=== PATIENT | male | born 1965 | race Two or more races ===

== ENCOUNTER 2025-08-16 08:03 | Day surgery (SDC) | payer OTHER, MEDICAID ==
[~2025-08-16] VITALS: Ht 177.8 cm; Wt 77.1 kg
[~2025-08-16 08:03] MED LIST: ALLO300T2 PO; CHLO25TA2 PO; DULO60CA41 PO; EMPA1TAB PO; FER325T PO; GABA-1250 PO; HYDR10SY18 PO; LORA-1121 PO; MAGN400T40 OR; MORP15TA PO; ONDA-155 PO; PANT40TA2 PO; PERCOT PO; POTA-215 PO; SACU1TAB PO; TRAZ-228 PO
[2025-08-16] MEDS ORDERED: PROPOFOL 10 MG/ML 20 ML IV ONE ×4 (10:11→10:58)
[2025-08-16] MEDS ORDERED: LIDOCAINE 2% (LOCAL ANESTH.) PF 5ml SDV ONE (10:11)
[2025-08-16 11:07] VITALS: PULSE 58; RESP 18; TEMP 98.1; O2SAT 96
--- NOTE | 2025-08-16 11:08 | DVHHP2 ---
GI H&P Pre-Op Assessment Date: 08/16/25 Chief complaint: Cirrhosis and positive fit test. HPI: per clinic note Past medical history: per clinic note Past surgical history: per clinic note Family history: per clinic note Physical exam: General: NAD, AAOX3 HEENT: PERRL, no scleral icterus, normal hearing, gums without lesions or bleeding, oropharynx clear without erythema or exudate. Neck: Supple without enlargement of the thyroid, or lymphadenopathy. Chest: Normal size and shape, no tenderness, lung oden clear to auscultation and percussion, nonlabored breathing. Heart: RRR, no murmur Abdomen: non-distended, no tenderness to palpation, +BS, no hepatosplenomegaly Extremities: no edema Neurological: CN II-XII intact, sensation intact in all extremities, 5+ strength in all extremities Skin: No rashes, No jaundice Assessment: - Cirrhosis and positive fit test. Plan: - EGD - Colonoscopy - Risks (bleeding, infection, perforation, reaction to sedation medications and cardiopulmonary arrest) and benefit of the procedure were explained to patient. Patient agrees to undergo the procedure. JOSE CHASE MD Aug 16, 2025 11:08
--- NOTE | 2025-08-16 11:10 | DVHOP2 ---
Operative Report DATE OF OPERATION: 08/16/25 PROCEDURE: Upper Endoscopy. PREOPERATIVE INDICATION: The patient is a 60 -year-old male with cirrhosis undergoing endoscopy for esophageal variceal screening. POSTOPERATIVE DIAGNOSES: 1. Portal hypertensive gastropathy. 2. 2 cm hiatal hernia 3. Two esophageal varices were banded in the distal esophagus. PROCEDURE PERFORMED BY: Chapito Busby SCOPE: Olympus videoendoscope. ASA CLASS: 3 PREOPERATIVE MEDICATIONS: MAC with Jun MARTINEZ PROCEDURE IN DETAIL: After obtaining an informed consent, the patient was placed on his back. The patient was then sedated by Jun MARTINEZ. A bite block was placed between his teeth. The endoscope was then passed through the oropharynx, into the esophagus, and through the stomach and pylorus up to the second and third part of the duodenum. The duodenum was normal in appearance. There was portal hypertensive gastropathy. There was a 2 cm hiatal hernia. The GE junction was at 39 cm. Two esophageal varices in the distal esophagus were banded. The endoscope was then withdrawn. The patient tolerated the procedure well without difficulty. COMPLICATIONS : None SPECIMENS: None DISPOSITION: D/C to home PLAN: 1. Patient will need repeat EGD to reassess the esophageal varices in about a month. CHAPITO BUSBY MD Aug 16, 2025 11:10
--- NOTE | 2025-08-16 11:12 | DVHOP2 ---
Operative Report DATE OF OPERATION: 08/16/25 PROCEDURE: Colonoscopy. PREOPERATIVE INDICATION: The patient is a 60 -year-old male undergoing colonoscopy for positive fit test. POSTOPERATIVE DIAGNOSES: 1. Few small diverticulosis in the left colon. 2. There were rectal varices. 3. Internal hemorrhoids. PROCEDURE PERFORMED BY: Chapito Busby M.D. SCOPE: Olympus videocolonoscope. ASA CLASS: 3 PREOPERATIVE MEDICATIONS: MAC with Jun MARTINEZ PROCEDURE IN DETAIL: After obtaining an informed consent, the patient was placed on left lateral decubitus position. He was then sedated by Jun MARTINEZ. A rectal examination was performed that was normal. The colonoscope was then passed through the anus into the rectosigmoid and through the descending, transverse, and ascending colon up to the cecum with visualization of the appendiceal orifice, base of the cecum and the ileocecal valve. No mass or polyp was observed. There were rectal varices. They were not bleeding. There were internal hemorrhoids. The colonoscope was then withdrawn. The patient tolerated the procedure well without difficulty. WITHDRAWAL TIME: 7 minutes QUALITY OF THE PREP: [place] Bowel Prep score: 6 COMPLICATIONS : None SPECIMENS: None DISPOSITION: D/C to home PLAN: 1. Repeat colonoscopy in 10 years for colon cancer screening. CHAPITO BUSBY MD Aug 16, 2025 11:12
--- NOTE | 2025-08-16 11:13 | DVHDS2 ---
Physician Discharge Progress N Final Diagnosis: Portal hypertensive gastropathy, hiatal hernia, esophageal varices Diverticulosis, rectal varices, internal hemorrhoids Operations or Procedures: Operations or Procedures EGD with esophageal variceal banding Colonoscopy Condition on Discharge: Good Disposition: Home Discharge Instructions: Diet: See Comment Diet comment: Patient can only have liquid diet for next 24 hours. Activity: No Restrictions, As Tolerated Medications: Resume previous home medications Follow Up Care: Discharge Statement: "Patient was advised to return to the ER or call 911 if any headaches, dizziness, shortness of breath, chest pain, abdominal pain, bleeding, fevers, or worsening of medical condition. Patient was counseled about treatment plan, medications, possible side effects, patientverbalized understanding. All questions were answered to the best of my ability. This discharge took greater then 30 minutes in planning, reviewing documentation, counseling the patient, and discussing with other team members." JOSE CHASE MD Aug 16, 2025 11:13
[2025-08-16 11:20] VITALS: PULSE 51; RESP 14; O2SAT 98
[2025-08-16 11:45] VITALS: BP 121/79; PULSE 49; RESP 10; O2SAT 99
== END 2025-08-16 12:07 | disposition home or self-care (01) ==
LOC: GI 08:03
PROVIDERS: ATTEND Internal Medicine Gastroenterology
DX: R19.5 Other fecal abnormalities (principal); K57.30 Diverticulosis of large intestine without perforation or abscess without bleeding; K64.8 Other hemorrhoids; K74.60 Unspecified cirrhosis of liver; K31.89 Other diseases of stomach and duodenum; K76.6 Portal hypertension; I85.10 Secondary esophageal varices without bleeding; K44.9 Diaphragmatic hernia without obstruction or gangrene; I10 Essential (primary) hypertension; F32.A Depression, unspecified; M10.9 Gout, unspecified; Z79.899 Other long term (current) drug therapy; Z96.643 Presence of artificial hip joint, bilateral; Z86.2 Personal history of diseases of the blood and blood-forming organs and certain disorders involving the immune mechanism; Z98.890 Other specified postprocedural states
CPT/HCPCS: 43244; 45378; 82962; J2003; J2704; J7050